=== PATIENT | female | born 1965 | race African-American/Black ===

== ENCOUNTER 2017-01-11 17:41 | Emergency (ER) | payer OTHER ==
[~2017-01-11 17:41] MED LIST: IBUP-232 PO
[2017-01-11 17:42] VITALS: BP 137/89; PULSE 97; RESP 16; TEMP 98.1; O2SAT 98
[2017-01-11] MEDS ORDERED: LIDOCAINE 1%/EPINEPHrine 1:100,000 SOLN 20 ML VIAL INFIL ONE (20:00)
--- NOTE | 2017-01-11 20:06 | PD ---
HPI Chief Complaint: Skin Problem Time Seen by Provider: 19:59 Travel History International Travel<30 days: No Contact w/Intl Traveler<30days: No Traveled to known affect area: No History of Present Illness HPI Patient comes in complaining of a painful lump on her right posterior shoulder that began approximately 1 week ago. Patient reports similar happen to her about 4 years ago that her significant other popped and it went away. Patient has been having throbbing pain over the past week without any radiation. Patient advised anything making this better or worse. Denies any fevers. Patient has been putting rubbing alcohol on it trying to help without success. Denies anything making symptoms better or worse. PFSH Past Medical History Patient Takes Glucophage: No Diminished Hearing: No Influenza Vaccination: No ?: Not : 3 Para: 3 Past Surgical History Gynecologic Surgery: Yes (UTERINE LASER SURGERY) Social History Alcohol Use: Yes (WINE COOLERS A DAY) Tobacco Use: No Substance Use: Yes (POT) Allergies-Medications (Allergen,Severity, Reaction): Coded Allergies: No Known Allergies (Verified , 04/01/15) Reported Meds & Prescriptions Reported Meds & Active Scripts Active Keflex (Cephalexin) 500 Mg Cap 500 Mg PO Q8H Bactrim DS (Sulfamethoxazole-Trimethoprim) 800-160 Mg Tab 1 Tab PO BID Motrin (Ibuprofen) 600 Mg Tab 600 Mg PO Q6 PRN Review of Systems Except as stated in HPI: all other systems reviewed are Neg Physical Exam Narrative GENERAL: Well-developed, overly nourished, in no acute distress, and non-ill appearing. SKIN: Focused skin assessment warm and dry. Fluctuant abscess noted right posterior shoulder is tender to palpation. There is induration surrounding this. There is no crepitus. HEAD: Atraumatic. Normocephalic. EYES: Pupils equal and round. EOMI. No scleral icterus. No injection or drainage. ENT: No nasal bleeding or discharge. Mucous membranes pink and moist. NECK: Trachea midline. Supple. No nuclear rigidity. RESPIRATORY: No accessory muscle use. No respiratory distress. MUSCULOSKELETAL: No obvious deformities. No clubbing. No cyanosis. No edema. Full range of motion. NEUROLOGICAL: Awake and alert. No obvious cranial nerve deficits. Motor grossly within normal limits. Normal speech. PSYCHIATRIC: Appropriate mood and affect; insight and judgment normal. Data Data Last Documented VS Vital Signs Date Time Temp Pulse Resp B/P (MAP) Pulse Ox O2 Delivery O2 Flow Rate FiO2 01/11/17 20:45 01/11/17 17:42 98.1 97 16 98 Orders Orders Lidocai-Epi 1%-1:100,000 Inj (Xylocaine- (01/11/17 20:00) Wound Culture And Gram Stain (01/11/17 20:03) Bupivacaine Pf 0.5% Inj (Marcaine Pf 0.5 (01/11/17 20:15) Naproxen (Naprosyn) (01/11/17 20:30) Ed Discharge Order (01/11/17 20:25) [facility] Medical Decision Making Medical Screen Exam Complete: Yes Emergency Medical Condition: Yes Differential Diagnosis Abscess, cellulitis, gangrene, folliculitis, other Narrative Course The patient has no evidence of significant cellulitis. There is no evidence of necrotizing fasciitis/ Skyler at this time. The patient will be discharged on antibiotics. The patient was given signs and symptoms warnings for worsening infection, such as spreading of redness, increasing pain, and/or swelling, associated heat, or fever or feels worse, and instructed to return immediately if these signs or symptoms worsen. The patient is to return in 2 days for recheck. Sooner if worsens or as needed. The patient agrees with plan. Patient in no obvious distress upon re-evaluation. Patient was asked if they wanted to speak to my attending, which the patient did not wish to do at this time. Any questions/concerns in reference to patient diagnosis/condition discussed and clarified prior to patient's discharge. Reinforced sheer importance of close follow up with patient's primary physician or primary care clinic. Instructed patient to return to ED immediately, if symptoms return/ worsen. Patient showed understanding of above instructions. Further instructions and recommendations were detailed in discharge paperwork. Patient ambulated without difficulty out of ED at discharge. Procedures Procedure Narrative INCISION AND DRAINAGE OF ABSCESS: Verbal consent was obtained. The area was prepped. A subcutaneous wheal of Marcaine with epi with a total number 2 mL was used to anesthetize the area. The area was properly anesthetized. A number 11 scalpel was used to make a 1-cm incision across the area of the abscess. Quarter inch iodoform packing was placed in the wound. Sterile dressing applied by nurse. Patient tolerated procedure well. Patient advised to return here in 2 days to have packing removed and wound rechecked. Patient verbalized understanding. Diagnosis Primary Impression: Abscess Referrals: [facility] Patient Instructions: Abscess (ED), Abscess Incision and Drainage (DC), General Instructions Additional Instructions: Follow-up with your primary care physician or return here 2 days for recheck. Take all medication as prescribed. Use [id number] Tylenol or ibuprofen as needed for pain. Follow instructions on the packaging. Return to the emergency department if symptoms get worse. Med/Other Pt SpecificInfo: Prescription(s) given Scripts Cephalexin (Keflex) 500 Mg Cap 500 MG PO Q8H for Infection, #30 CAP 0 Refills Prov: Caro Yoon MD 01/11/17 Sulfamethoxazole-Trimethoprim (Bactrim DS) 800-160 Mg Tab 1 TAB PO BID for Infection, #20 TAB 0 Refills Prov: Caro Yono MD 01/11/17 Disposition: 01 DISCHARGE HOME Condition: Stable Arian Mello Jan 11, 2017 20:06
[2017-01-11] MEDS ORDERED: BUPIVACAINE HCL PF 0.5% 30 ML VIAL INFIL ONE (20:15)
[2017-01-11] MEDS ORDERED: BACT800T5 PO (20:25)
[2017-01-11] MEDS ORDERED: CEPH-460 PO (20:25)
[2017-01-11] MEDS ORDERED: NAPROXEN 500 MG TAB PO ONE (20:30)
== END 2017-01-11 21:12 | disposition home or self-care (01) ==
LOC: NEPK 17:41
DX: L02.413 Cutaneous abscess of right upper limb (principal)
CPT/HCPCS: 10061; 87070; 87205